=== PATIENT | male | born 1995 | race Caucasian/White ===

== ENCOUNTER 2017-04-16 06:02 | Inpatient (IN) ==
[2017-04-16] MEDS ORDERED: PANTOPRAZOLE 40 MG VIAL IV STA (06:30)
[2017-04-16] MEDS ORDERED: HYDROmorphone 2 MG/1 ML VIAL IV STA ×2 (06:30→08:58)
[2017-04-16] MEDS ORDERED: SODIUM CHLORIDE 0.9% 1,000 ML IV STA (06:30)
[2017-04-16] MEDS ORDERED: ONDANSETRON 4 MG/2 ML VIAL IV STA (06:30)
--- NOTE | 2017-04-16 06:33 | Emergency Department Note ---
Rolf Guzman Rolonda, am scribing for, and in the presence of, Adryan Lozada MD 06: 30. Kierra Guzman James D, MD, personally performed the services described in this documentation, ascribed by Chauncey Bansal in my presence, and it is both accurate and complete 631 . Arrival - Arrival Chief Complaint: Abdominal / Flank Pain Stated Complaint: abd pain,SOB ED Nursing Triage Note: C/O Generalized abd pain. Onset 2200 lastnight. Pt reports taking stool softener thinking it could be gas or constipation- had a BM without any relief of the pain. Denies fever/nausea/vomiting/diarrhea/ urinary s/s Mode of Arrival: Ambulatory Limitations: No Limitations Source: Patient, Old Records Reviewed, RN Notes Reviewed - History of Present Illness HPI Narrative: Pt is a 22 y/o male who presents to the ED with c/o abdominal pain with an onset of hours ago. Pt states that he took stool softener and Gas-X. He states that he has recently had 6-7 beers this weekend. He denies N/V, chill, and fever. No other complaint/pain in ED. Onset (ago): hour(s) Consistency: constant Severity: mild, moderate Severity scale (1-10): 4 Allergies/Adverse Reactions: Allergies Allergy/AdvReac Type Severity Reaction Status Date / Time No Known Allergies Allergy Verified 04/16/17 06:15 Home Medications: Home Medications Medication Instructions Recorded Confirmed Type No Known Home Medications [No 04/16/17 04/16/17 History Known Home Medications] Review of System - Review of System 12 point system: reviewed and no additional remarkable complaints except as stated - Review of System Constitutional: Absent: chills, fever Eyes: Absent: discharge Head/Ears/Nose/Throat: Absent: earache Respiratory: Absent: cough Cardiovascular: Absent: chest pain Gastrointestinal: Present: abdominal pain. Absent: nausea, vomiting Genitourinary male: Absent: urgency Musculoskeletal: Absent: arm pain Skin: Absent: rash Neurological: Absent: headache Psychiatric: Absent: anxiety Endocrine: Absent: cold intolerance Hematological/Lymphatic: Absent: easy bleeding Allergic/Immunologic: Absent: facial swelling Medical,Surgical,& Family Hx - Social History Smoking Status: Never smoker Frequency of Alcohol Use: Occasionally Type of Drug Use: None Exam Vital Signs: Vital Signs Temperature 98.5 F 04/16/17 06:15 Pulse Rate 84 04/16/17 07:38 Respiratory Rate 16 04/16/17 07:38 Blood Pressure 148/85 04/16/17 07:38 O2 Sat by Pulse Oximetry 98 04/16/17 07:38 GENERAL: This is a well-nourished well-developed white male in no apparent distress. VITAL SIGNS: Reviewed HEENT: Head is atraumatic and normocephalic. Pupils are equal round react to light. Extraocular movements are intact. Oropharynx is benign with moist mucous membranes. NECK: Neck is soft and supple without tenderness. There are no masses. There is no lymphadenopathy. LUNGS: Lungs are clear to auscultation. Chest rises symmetrically. There is no chest wall tenderness. CV: Heart is regular rate and rhythm without murmurs rubs or gallops. ABDOMEN: Abdomen is soft, tender to palpation in the epigastrium and right upper quadrant with guarding. There are no abdominal abnormal masses palpated. There is no organomegaly. Bowel sounds are hypoactive. SKIN: Skin is warm and dry. No rash. EXTREMITIES: Patient has full range of motion without tenderness. There is no pedal edema. NEUROLOGIC: Awake alert and oriented 4. Cranial nerves II through XII are grossly intact. Motor is 5 over 5 in all extremities bilaterally. Course - Consultations Consultation #1: Discussed with hospitalist. Time: 09:04 Results - Labs CBC & BMP: 04/16/17 06:42 04/16/17 06:42 Lab Results: I have reviewed the patients labs - EKG EKG results: interpreted by ERMD - Diagnostic Findings Procedure: Abdominal x-ray: image reviewed by me (No free air, nonspecific gas pattern, gas in the rectum.), Chest x-ray: image reviewed by me (No infiltrates , no pleural effusions.), CT Abdomen and Pelvis: report reviewed by me (Colitis since scattered air-fluid levels.) Disposition Clinical Impression: Epigastric pain, Right upper quadrant abdominal pain, Colitis Case discussed with: patient Disposition: Still a Patient Condition: Stable Time of Disposition: 09:04
[2017-04-16] MEDS ORDERED: PANTOPRAZOLE 40 MG VIAL IV ONE (06:38)
[2017-04-16] MEDS ORDERED: ONDANSETRON 4 MG/2 ML VIAL ONE ×2 (06:38→09:18)
[2017-04-16] MEDS ORDERED: HYDROmorphone 2 MG/1 ML VIAL ONE ×2 (06:39→09:19)
[2017-04-16 07:01] LABS: Basophils # 0.1 10*3/uL (0.0-0.2); Basophils % 0.6 % (0.0-0.8); Eosinophils # 0.4 10*3/uL (0.0-0.87); Eosinophils % 3.6 % (0.00-10.9); Hematocrit 43.7 VOL% (42.0-52.0); Hemoglobin 15.6 GM/DL (14.0-18.0); Immature Granulocytes % 0.3 %; Immature Granulocytes Absolute 0.03 #; Lymphocytes # 1.9 10*3/uL (1.4-4.0); Lymphocytes % 18.5 % (21.2-54.2); Mean Corpuscular HGB Conc 35.7 GM/DL (32-36); Mean Corpuscular Hemoglobin 30 PG (27-34); Mean Corpuscular Volume 84.5 FL (87-102); Mean Platelet Volume 11.1 FL (9.6-12.0); Monocytes # 0.9 10*3/uL (0.11-0.8); Monocytes % 8.7 % (1.7-12.7); Neutrophils # 7.2 10*3/uL (1.4-7.4); Neutrophils % 68.3 % (38.7-73.9); Platelet Count 212 T/CUMM (130-400); Red Blood Count 5.17 MC/CUMM (3.8-5.5); Red Cell Distribution Width 12.2 % (9.3-17.3); White Blood Count 10.5 T/CUMM (4-12)
[2017-04-16 07:13] LABS: Apearance,Urine CLEAR (Clear); Bacteria,Urine Occasional /HPF (Few); Bilirubin,Urine Negative (Negative); Blood, Urine Negative (Negative); Glucose,Urine (UA) Negative (Negative); Ketones,Urine 5 mg/dL (Negative); Mucus,Urine Occasional /LPF (Occasional); Nitrite,Urine Negative (Negative); Protein,Urine Negative; RBC,Urine 1 /HPF (0-4); Squamous Epithelial Cell,Urine Occasional /HPF (0-10); Urine Color Yellow (Yellow); Urine Specific Gravity 1.031 (1.001-1.035); Urine Urobilinogen < 2.0 EU/DL (0.2-1.0); WBC,Urine 3 /HPF (0-6)
[2017-04-16 07:30] LABS: Albumin 4.8 G/DL (3.4-5.0); Bilirubin,Total 0.6 MG/DL (0.2-1.0); Calcium 9.9 MG/DL (8.5-10.1); Osmolality,Calculated 276.8 MOS/KG (273-304); Potassium 3.6 MMOL/L (3.5-5.1); Total Protein 8.2 G/DL (6.4-8.3)
[2017-04-16 07:32] LABS: Lactic Acid 3.2 MMOL/L (0.4-2.0)
[2017-04-16] MEDS ORDERED: FAMOTIDINE 20 MG/2 ML VIAL IV STA (07:33)
[2017-04-16] MEDS ORDERED: ALUM/MAG/SIMETH/LIDO VISC 1:1 30 ML BOTTLE PO STA (07:33)
[2017-04-16] MEDS ORDERED: ALUM/MAG/SIMETH/LIDO VISC 1:1 30 ML BOTTLE PO ONE (07:35)
[2017-04-16] MEDS ORDERED: FAMOTIDINE 20 MG/2 ML VIAL IV ONE (07:36)
--- NOTE | 2017-04-16 07:52 | XRay Report ---
XR abdomen 2V Indication: Generalized abdominal pain Comparison: None Technique: Frontal views of the abdomen in the supine and upright position. Findings: Nonspecific bowel gas pattern. Scattered fluid levels within the small bowel and colon suspicious for gastroenteritis/colitis/diarrhea causing illness. Visualized osseous and surrounding soft tissue structures demonstrate no acute abnormality. Lung bases clear. IMPRESSION: As above. PROCEDURE INTERPRETED AT [facility] DEPARTMENT OF RADIOLOGY Final Report Signed by: Dr Pawan Mendosa
--- NOTE | 2017-04-16 08:03 | Ultrasound Report ---
US gallbladder Indication: Epigastric and right upper quadrant abdominal pain. Comparison: None. Technique: Multiple longitudinal and transverse real-time sonographic images of the right upper quadrant of the abdomen are obtained. Findings: The liver measures 16.2 cm and demonstrates normal echogenicity without focal abnormality on submitted images. The gallbladder is normal in size and demonstrates no wall thickening, abnormal intraluminal echoes, or pericholecystic fluid. The sonographic Main's sign is negative. The common duct measures 0.4 cm in diameter and there is no evidence of significant intrahepatic ductal dilation. Right kidney measures 9.6 cm. Pancreas obscured by bowel gas. IMPRESSION: Unremarkable right upper quadrant ultrasound. PROCEDURE INTERPRETED AT [facility] DEPARTMENT OF RADIOLOGY Final Report Signed by: Dr Pawan Mendosa
--- NOTE | 2017-04-16 08:20 | CT Report ---
CT abdomen pelvis w con Indication: Epigastric pain Comparison: None Technique: Multiple axial tomographic images of the abdomen and pelvis were obtained after the administration of 100 cc Omnipaque 350 intravenous contrast. Findings: Lung bases clear. No worrisome focal hepatic abnormality. The gallbladder is grossly unremarkable. The pancreas is grossly unremarkable. The spleen is grossly unremarkable. The bilateral adrenal glands are grossly unremarkable. The urinary bladder is incompletely distended. There is no evidence of gastrointestinal obstruction or acute appendicitis. Scattered fluid throughout the small bowel and colon suspicious for gastroenteritis/colitis/diarrhea causing illness. Visualized vasculature grossly unremarkable. IMPRESSION: Scattered fluid throughout the small bowel and colon suspicious for gastroenteritis/colitis/diarrhea causing illness. The CT exam was performed using one or more of the following dose reduction techniques: Automated exposure control, adjustment of the mA and/or kV according to patient size, or use of iterative reconstruction technique. PROCEDURE INTERPRETED AT [facility] DEPARTMENT OF RADIOLOGY Final Report Signed by: Dr Pawan Mendosa
--- NOTE | 2017-04-16 08:33 | XRay Report ---
XR chest 1V portable Indication: Generalized abdominal pain Comparison: None Technique: Single frontal view of the chest. Findings: Heart size within normal limits. No focal consolidation, pleural effusion, or pneumothorax. Visualized osseous and surrounding soft tissue structures demonstrate no acute abnormality. IMPRESSION: No acute cardiopulmonary process demonstrated. PROCEDURE INTERPRETED AT [facility] DEPARTMENT OF RADIOLOGY Final Report Signed by: Dr Pawan Mendosa
[2017-04-16] MEDS ORDERED: ACETAMINOPHEN 325 MG TABLET PO PRN (09:30)
--- NOTE | 2017-04-16 09:37 | Hospitalist History & Physical ---
<Annika Castillo - Last Filed: 04/16/17 09:48> Assessment and Plan - Time spent with patient Time spent with patient: Greater than 30 minutes (1) Colitis Status: Acute Assessment and plan: Admit 04/16/17 IV fluids clear liquid diet PRN anti-emetics PRN pain management protonix daily consult GI Will discuss with Dr Ken for further recommendations with care. Current Visit: Yes (2) Right upper quadrant abdominal pain Status: Acute Current Visit: Yes History of Present Illness Chief complaint: abdominal pain History of present illness: Mr. Washburn is a 22 year old white male without significant PMHx presented to the ED with c/o abdominal pain and nausea that started at 22:00 p.m. He denies vomiting. He reports taking a stool softener at about 10:30 because he thought constipation was causing his pain and he started having diarrhea 45 to hour after taking it. He reported the pain to be center of abdomen that does not radiate to any other location. He reports pain/soreness in his scrotum, but denies difficulty urinating, swelling, urinary frequency or flank pain. He denies fever or chills. He denies smoking or drug use. He reported 6-7 beers over the weekend. IN ED: Vital signs stable and afebrile. LABS: WBC normal. H&H stable. BUN 19. Creatinine 1.30, Glucose 139, Lactic Acid 3.2. Urinalysis Leukocytes trace , WBC 3, negative nitrates, ketones 5. Abd xray: scattered fluid in small bowel & colon suspicious for gastroenteritis/colitis/diarrhea causing illness. CXR: nothing acute. Gallbladder US: gallbladder normal; pancreas obscured by bowel gas. Abd CT: scattered fluid throughout small bowel and colon suspicious for gastroenteritis/colitis/diarrhea causing illness. After discussion with Dr Lozada in the ED and Dr Ken with Hospital Medicine, it was agreed to admit patient for further evaluation. No home medications to be reviewed or reconciled. Home Medications Medication Instructions Recorded Confirmed Type No Known Home Medications [No 04/16/17 04/16/17 History Known Home Medications] Allergies Allergy/AdvReac Type Severity Reaction Status Date / Time No Known Allergies Allergy Verified 04/16/17 06:15 Medical,Surgical,& Family Hx - Social History Smoking Status: Never smoker Frequency of Alcohol Use: Occasionally Type of Drug Use: None Marital Status: Single Functional capacity: independent ambulation 12 point system: reviewed and no additional remarkable complaints except as stated - Constitutional Constitutional: Absent: chills, fever(s) - Gastrointestinal Gastrointestinal: Present: abdominal pain - Genitourinary Genitourinary: Present: testicular pain. Absent: difficulty urinating, dysuria , flank pain, urinary frequency, urinary incontinence Exam - Constitutional Vitals: Period Temp Pulse Resp BP Sys/Fox Pulse Ox Last 24 Hr 98.5 F-98.5 F 80-84 16-20 148-149/80-85 98-100 General appearance: normal weight, no acute distress - Head Head exam: Present: normal inspection - Eye Eye exam: Present: EOMI Pupils: Present: INGRID - Respiratory Respiratory exam: Present: clear to auscultation bilaterally. Absent: rales, rhonchi, stridor, wheezes - Cardiovascular Cardiovascular exam: Present: regular rate and rhythm - GI/Abdominal GI/Abdominal exam: Present: normal bowel sounds, tenderness, soft. Absent: firm , guarding, rebound - Extremities Exam Extremities exam: Present: normal inspection, full ROM. Absent: edema - Neurological Exam Neurological exam: Present: alert, oriented X3, CN II-XII intact - Psychiatric Psychiatric exam: Present: normal affect, normal mood. Absent: agitated, anxious - Skin Skin exam: Present: normal color, warm, dry Results - Labs CBC & BMP: 04/16/17 06:42 04/16/17 06:42 Lab Results: I have reviewed the past 24 hour labs - Diagnostic Findings Procedure: Abdominal x-ray: report reviewed by me (scattered fluid levels within the small bowel and colon suspicious for gastroenteritis/colitis/diarrhea ), Chest x-ray: report reviewed by me (nothing acute), CT Abdomen and Pelvis: report reviewed by me (scattered fluid throughout the small bowel and colon suspicious for gastroenteritis/colitis/diarrhea causing illness) <Alex Ken - Last Filed: 04/16/17 16:27> History of Present Illness History of present illness: Patient seen and examined independently of PADDING GLUER Castillo, agree with history, assessment and plan as documented. This afternoon patient reports that abdominal pain is much better after receiving pain medications. Afebrile, no leukocytosis. GI has been consulted. Possible discharge soon if continues to improve. Exam - Constitutional Vitals: Period Temp Pulse Resp BP Sys/Fox Pulse Ox Last 24 Hr 96.9 F-98.5 F 55-89 16-20 118-153/65-105 96-100 Results - Labs CBC & BMP: 04/16/17 06:42 04/16/17 06:42
[2017-04-16] MEDS: ONDANSETRON 4 MG/2 ML VIAL IV PRN ×2 (14:31→21:48)
[2017-04-16] MEDS: SODIUM CHLORIDE 0.9% 1,000 ML IV SCH ×2 (14:32→21:51)
[2017-04-16] MEDS: MORPHINE 2 MG/1 ML SYRINGE IV PRN ×2 (14:32→23:57)
--- NOTE | 2017-04-16 14:37 | Gastrointestinal Consult Note ---
Assessment and Plan (1) Abdominal pain Status: Acute Assessment and plan: 04/16-sudden onset of abdominal pain with nausea without vomiting. No fever, without leukocytosis. CT of abdomen findings noted as below as well as ultrasound being negative. Stool cultures are pending. Start Protonix 40 mg daily. No prior history of endoscopy. Plan an addendum to followed by Dr. Delgado. Current Visit: Yes History of Present Illness Chief complaint: Abdominal pain History of present illness: Mr. Washburn is a 22 year old male who was admitted to the hospital this morning after sudden onset of abdominal pain last night. Patient is accompanied by his mother who is at bedside however he is able to provide historical information. Patient is a student at the [employer]. He states that last night he returned home from basketball practice and was feeling like his usual state of health however about 10 PM he had a sudden onset of severe mid abdominal pain that was sharp and stabbing sensation. He states the pain felt like gas pressure at first so he took some stool softeners feel like he needed to have a bowel movement. He states not long after this he did have 2 fairly loose stools however his symptoms continued. He also reports some nausea however states he was unable to vomit. He denies any melena hematochezia with his bowel movements. Patient states the pain continued throughout the night until early this morning and did not decrease in intensity or severity. He also reports having some scrotal tenderness and feeling of pressure. He denies any associated problems with urinating, frequency, urgency hematuria or other related symptoms. He states that he does not smoke however he does drink 1-2 beers about 3 times a week. He did attend a birthday alliance party on Sunday which she drank approximately 6-7 beers. He denies any NSAID use other than occasional ibuprofen. He denies any recent sports related injury and states that he is usually in good state of health. There is no reported family history of GI problems in the past. Patient denies any weight loss and states he has been slowly gaining weight recently. He denies any fever or chills but states that he does have occasional night sweats but relates this to the amount of covers he uses at night. He denies being exposed to others with a known viral illness. On admission, he had a CT of the abdomen with contrast which showed scattered fluid in the small bowel and colon suspicious for gastroenteritis/colitis/diarrhea illness. He denies taking any recent medications including antibiotics. Ultrasound is without any abnormal results noted. He is without leukocytosis. UA is negative. He has a mildly elevated lactic acid at 3.2. Creatinine is 1.3. Remainder of lab work is unremarkable. Home Medications Medication Instructions Recorded Confirmed Type No Known Home Medications [No 04/16/17 04/16/17 History Known Home Medications] Allergies Allergy/AdvReac Type Severity Reaction Status Date / Time No Known Allergies Allergy Verified 04/16/17 06:15 Medical,Surgical,& Family Hx - Medical History Musculoskeletal: No history of: Amputation - Surgical History Neurologic Surgeries: Patient denies: Neurologic Surgery - Family History Family History: Reports;: Family Diabetes, Family Hypertension Denies;: Family Anesthesia Reaction, Family Heart Disease, Family Psychiatric Problems - Social History Smoking Status: Never smoker Frequency of Alcohol Use: Occasionally Type of Drug Use: None 12 point system: reviewed and no additional remarkable complaints except as stated - Constitutional Constitutional: Present: as per HPI - EENT Eyes: Present: as per HPI Ears: Present: as per HPI Nose, mouth and throat: Present: as per HPI - Cardiovascular Cardiovascular: Present: as per HPI - Respiratory Respiratory: Present: as per HPI - Gastrointestinal Gastrointestinal: Present: as per HPI, abdominal pain, bloating, nausea - Genitourinary Genitourinary: Present: as per HPI - Musculoskeletal Musculoskeletal: Present: as per HPI - Neurological Neurological: Present: as per HPI - Psychiatric Psychiatric: Present: as per HPI - Endocrine Endocrine: Present: as per HPI - Hematologic/Lymphatic Hematologic/Lymphatic: Present: as per HPI Exam - Constitutional Vitals: Period Temp Pulse Resp BP Sys/Fox Pulse Ox Last 24 Hr 96.9 F-98.5 F 55-89 16-20 118-153/65-105 96-100 General appearance: normal weight, no acute distress - Head Head exam: Present: normal inspection, normocephalic - Eye Eye exam: Present: other (Lids and conjunctivae are unremarkable). Absent: scleral icterus - ENT ENT exam: Present: normal exam, normal oropharynx - Neck Neck exam: Present: normal inspection - Respiratory Respiratory exam: Present: clear to auscultation bilaterally. Absent: rales, rhonchi, wheezes - Cardiovascular Cardiovascular exam: Present: regular rate and rhythm. Absent: diastolic murmur , JVD, systolic murmur - GI/Abdominal GI/Abdominal exam: Present: normal bowel sounds, tenderness (Mid abdomen), soft. Absent: ascites, distended, mass, organomegaly - Extremities Exam Extremities exam: Present: normal inspection, full ROM - Back Exam Back exam: Present: normal inspection - Neurological Exam Neurological exam: Present: alert, oriented X3 - Psychiatric Psychiatric exam: Present: normal affect, normal mood - Skin Skin exam: Present: normal color, warm, dry Results - Labs CBC & BMP: 04/16/17 06:42 04/16/17 06:42 Lab Results: I have reviewed the past 24 hour labs - Diagnostic Findings Procedure: CT Abdomen and Pelvis: report reviewed by me
[2017-04-17] MEDS: MORPHINE 2 MG/1 ML SYRINGE IV PRN ×3 (05:40→23:14)
[2017-04-17] MEDS: SODIUM CHLORIDE 0.9% 1,000 ML IV SCH ×3 (05:42→22:17)
[2017-04-17 07:36] LABS: Basophils # 0.1 10*3/uL (0.0-0.2); Basophils % 0.9 % (0.0-0.8); Eosinophils # 0.6 10*3/uL (0.0-0.87); Eosinophils % 11.4 % (0.00-10.9); Hematocrit 40.1 VOL% (42.0-52.0); Hemoglobin 13.9 GM/DL (14.0-18.0); Immature Granulocytes % 0.2 %; Immature Granulocytes Absolute 0.01 #; Lymphocytes # 1.8 10*3/uL (1.4-4.0); Lymphocytes % 32.8 % (21.2-54.2); Mean Corpuscular HGB Conc 34.7 GM/DL (32-36); Mean Corpuscular Hemoglobin 30 PG (27-34); Mean Corpuscular Volume 87.2 FL (87-102); Mean Platelet Volume 11.4 FL (9.6-12.0); Monocytes # 0.6 10*3/uL (0.11-0.8); Monocytes % 11.2 % (1.7-12.7); Neutrophils # 2.3 10*3/uL (1.4-7.4); Neutrophils % 43.5 % (38.7-73.9); Platelet Count 185 T/CUMM (130-400); Red Cell Distribution Width 12.6 % (9.3-17.3); White Blood Count 5.3 T/CUMM (4-12)
[2017-04-17 08:07] LABS: Calcium 8.9 MG/DL (8.5-10.1); Magnesium 2.2 MG/DL (1.8-2.4); Osmolality,Calculated 278.3 MOS/KG (273-304); Potassium 4.2 MMOL/L (3.5-5.1)
[2017-04-17 08:21] LABS: Eosinophils 14 % (0-10); Giant Platelets Few; Hypochromasia 1+; Lymphocytes 34 % (20-55); Platelet Estimate Normal; Segmented Neutrophils 40 % (50-85); Total Cells Counted 100
[2017-04-17] MEDS: PANTOPRAZOLE 40 MG TABLET PO SCH (08:39)
--- NOTE | 2017-04-17 08:42 | Gastrointestinal Progress Note ---
<SilvioKatie Nandini - Last Filed: 04/17/17 08:40> Assessment and Plan (1) Abdominal pain Status: Acute Assessment and plan: 04/17-abdominal pain improved without nausea or vomiting. Afebrile. Tolerating clear liquid diet with increased appetite. Advance to full liquids and continue to monitor. Plan an addendum to followed by Dr. Delgado. 04/16-sudden onset of abdominal pain with nausea without vomiting. No fever, without leukocytosis. CT of abdomen findings noted as below as well as ultrasound being negative. Stool cultures are pending. Start Protonix 40 mg daily. No prior history of endoscopy. Plan an addendum to followed by Dr. Delgado. Current Visit: Yes Gastroenterology - PN: Subj Interval history: CC: Abdominal pain Patient is seen awake and alert with mother at bedside. States he is feeling better this morning. He did require pain medication yesterday afternoon and once again last night but states that his pain is much more improved at this time. He denies any nausea or vomiting. He does states the pain started a little while after he had a clear liquid diet as well as 2 or 3 extra cups of Jell-O. He has not had a bowel movement today. He is afebrile without leukocytosis. His lab work is unremarkable this morning. Abdomen is soft, nontender to palpation. ROS: Denies shortness of breath or chest pain Exam (Progress Note) - Constitutional Vitals: Period Temp Pulse Resp BP Sys/Fox Pulse Ox Last 24 Hr 96.9 F-98.2 F 45-89 16-20 118-153/65-105 96-100 - Other Additional findings: General appearance: normal weight, no acute distress - Head Head exam: Present: normal inspection, normocephalic - Eye Eye exam: Present: other (Lids and conjunctivae are unremarkable). Absent: scleral icterus - ENT ENT exam: Present: normal exam, normal oropharynx - Neck Neck exam: Present: normal inspection - Respiratory Respiratory exam: Present: clear to auscultation bilaterally. Absent: rales, rhonchi, wheezes - Cardiovascular Cardiovascular exam: Present: regular rate and rhythm. Absent: diastolic murmur , JVD, systolic murmur - GI/Abdominal GI/Abdominal exam: Present: normal bowel sounds, , soft. Absent: ascites, distended, mass, organomegaly - Extremities Exam Extremities exam: Present: normal inspection, full ROM - Back Exam Back exam: Present: normal inspection - Neurological Exam Neurological exam: Present: alert, oriented X3 - Psychiatric Psychiatric exam: Present: normal affect, normal mood - Skin Skin exam: Present: normal color, warm, dry Results - Labs CBC & BMP: 04/17/17 06:32 04/17/17 06:32 Lab Results: I have reviewed the past 24 hour labs <Abilio Delgado - Last Filed: 04/17/17 13:48> Exam (Progress Note) - Constitutional Vitals: Period Temp Pulse Resp BP Sys/Fox Pulse Ox Last 24 Hr 96.9 F-98.2 F 45-70 16-20 119-146/65-89 96-100 Results - Labs CBC & BMP: 04/17/17 06:32 04/17/17 06:32
--- NOTE | 2017-04-17 10:37 | Hospitalist Progress Note ---
Assessment and Plan (1) Gastroenteritis Status: Acute Assessment and plan: He appears to be improving at the present time he is not experiencing nausea, vomiting, or diarrhea. His abdominal pain is decreased significantly and he has begun eating. Current Visit: Yes (2) Abdominal pain Status: Acute Assessment and plan: See above. Current Visit: Yes Hospitalist: Subjective Interval history: Patient was hospitalized here yesterday with acute gastroenteritis. He has been seen in consultation by gastroenterology. He is tolerating a clear liquid diet and wishes to advance to a full liquid diet. Exam - Constitutional Vitals: Period Temp Pulse Resp BP Sys/Fox Pulse Ox Last 24 Hr 96.9 F-98.2 F 45-74 16-20 119-149/65-99 96-100 General appearance: no acute distress - Head Head exam: Present: normal inspection - Neck Neck exam: Present: normal inspection - Respiratory Respiratory exam: Present: clear to auscultation bilaterally - Cardiovascular Cardiovascular exam: Present: regular rate and rhythm - GI/Abdominal GI/Abdominal exam: Present: normal bowel sounds, soft, other (Nontender with no palpable masses or hepatosplenomegaly.) - Extremities Exam Extremities exam: Present: normal inspection - Skin Skin exam: Present: normal color, warm, intact Results - Labs CBC & BMP: 04/17/17 06:32 04/17/17 06:32
--- NOTE | 2017-04-17 15:56 | Nuclear Medicine Report ---
History is recurrent upper abdominal pain and nausea 5.0 mCi technetium 99m Choletec utilized There is prompt uptake of radiotracer in the liver Gallbladder activity seen at 30 minutes Small bowel activity seen at 10 minutes Following administration of 8 ounces of ensure p.o., estimated gallbladder ejection fraction is 43% (normal is 40% or greater) Impression: Unremarkable gallbladder scan with borderline normal gallbladder ejection fraction PROCEDURE INTERPRETED AT [facility] DEPARTMENT OF RADIOLOGY Final Report Signed by: Dr. Marlin Harris
[2017-04-17] MEDS ORDERED: KETOROLAC 30 MG/1 ML VIAL IV ONE (21:00)
--- NOTE | 2017-04-17 21:30 | General Surgery Consult Note ---
Assessment and Plan (1) Epigastric pain Status: Acute Assessment and plan: Impression: Abdominal pain of unknown etiology Plan: Previous physician notes, lab work and radiograph reports and images have all been reviewed. Because of his abdominal pain is unknown. He had some mild scattered air-fluid levels with no significant bowel distention. Pancreas appears normal. There is no free fluid or free air. Lactic acid level was elevated upon arrival but this morning was normal. I see no evidence of bowel compromise or ischemia on his studies. We will recheck his lab work. Previous CT scan was without oral contrast. We will plan to check a CT scan with and without IV contrast and with oral contrast in the morning. He does not have peritoneal signs. His creatinine is normal and I will add Toradol to see if this helps with his pain. 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 The pain has occurred several times and is very severe during attacks. It is followed by i pain-free intervals. He has had no nausea vomiting or fever. He thought this may have been hunger pains initially. He ate and it did not seem to go away. He also tried stool softeners and at one point on Sunday had a liquid bowel movement but nothing since. He denies any medical problems. He did have some alcohol this past weekend. He describes the pain as being predominantly in the epigastric region but states that it is uncomfortable when somebody touches him in the lower abdomen. Pain is also began to radiate to his testicles mostly on the right compared to the left. He has also developed some back pain on the left more than the right. Home Medications Medication Instructions Recorded Confirmed Type No Known Home Medications [No 04/16/17 04/16/17 History Known Home Medications] Allergies Allergy/AdvReac Type Severity Reaction Status Date / Time No Known Allergies Allergy Verified 04/16/17 06:15 Medical,Surgical,& Family Hx - Medical History Medical History: noncontributory Musculoskeletal: No history of: Amputation - Surgical History Surgical History: noncontributory Neurologic Surgeries: Patient denies: Neurologic Surgery - Family History Family History: noncontributory Family History: Reports;: Family Diabetes, Family Hypertension Denies;: Family Anesthesia Reaction, Family Heart Disease, Family Psychiatric Problems - Social History Smoking Status: Never smoker Frequency of Alcohol Use: Occasionally Type of Drug Use: None 12 point system: reviewed and no additional remarkable complaints except as stated Exam - Constitutional Vitals: Period Temp Pulse Resp BP Sys/Fox Pulse Ox Last 24 Hr 96.9 F-98.0 F 45-70 18-20 119-140/65-86 96-99 General appearance: no acute distress - Head Head exam: Present: normocephalic - ENT Mouth exam: Present: normal external inspection - Neck Neck exam: Present: normal inspection - Respiratory Respiratory exam: Present: clear to auscultation bilaterally - Cardiovascular Cardiovascular exam: Present: RRR - GI/Abdominal GI/Abdominal exam: Present: soft (Tender to palpation mostly in the epigastric region. He is mildly tender in the bilateral lower quadrants and suprapubic area. There are no peritoneal signs. He is nondistended.) - Extremities Exam Extremities exam: Present: normal inspection - Back Exam Back exam: Present: normal inspection, CVA tenderness (L), other - Neurological Exam Neurological exam: Present: alert, oriented X3 Speech: Present: normal - Skin Skin exam: Present: normal color Results - Labs CBC & BMP: 04/17/17 06:32 04/17/17 06:32 Lab Results: I have reviewed the past 24 hour labs
[2017-04-17 21:37] LABS: Albumin 4.6 G/DL (3.4-5.0); Bilirubin,Direct 0.24 MG/DL (0.0-0.20); Bilirubin,Indirect 0.6 MG/DL (0.0-1.0); Bilirubin,Total 0.8 MG/DL (0.2-1.0); Total Protein 7.8 G/DL (6.4-8.3)
[2017-04-17 21:48] LABS: Lactic Acid 2.2 MMOL/L (0.4-2.0)
[2017-04-17] MEDS: ONDANSETRON 4 MG/2 ML VIAL IV PRN (22:14)
[2017-04-18] MEDS: SODIUM CHLORIDE 0.9% 1,000 ML IV SCH ×4 (01:50→19:24)
[2017-04-18] MEDS: KETOROLAC 15 MG/1 ML VIAL IV SCH ×4 (02:46→20:48)
[2017-04-18] MEDS: MORPHINE 2 MG/1 ML SYRINGE IV PRN (05:28)
[2017-04-18 07:35] LABS: Basophils # 0.1 10*3/uL (0.0-0.2); Basophils % 0.6 % (0.0-0.8); Eosinophils # 0.5 10*3/uL (0.0-0.87); Eosinophils % 6.4 % (0.00-10.9); Hematocrit 42.1 VOL% (42.0-52.0); Hemoglobin 14.9 GM/DL (14.0-18.0); Immature Granulocytes % 0.1 %; Immature Granulocytes Absolute 0.01 #; Lymphocytes # 1.7 10*3/uL (1.4-4.0); Lymphocytes % 22.1 % (21.2-54.2); Mean Corpuscular HGB Conc 35.4 GM/DL (32-36); Mean Corpuscular Hemoglobin 30 PG (27-34); Mean Corpuscular Volume 85.9 FL (87-102); Mean Platelet Volume 11.3 FL (9.6-12.0); Monocytes # 0.9 10*3/uL (0.11-0.8); Monocytes % 11.7 % (1.7-12.7); Neutrophils # 4.6 10*3/uL (1.4-7.4); Neutrophils % 59.1 % (38.7-73.9); Platelet Count 200 T/CUMM (130-400); Red Cell Distribution Width 12.5 % (9.3-17.3); White Blood Count 7.7 T/CUMM (4-12)
--- NOTE | 2017-04-18 08:31 | Gastrointestinal Progress Note ---
Assessment and Plan (1) Abdominal pain Status: Acute Assessment and plan: 04/18-abdominal pain remains the same at present. Afebrile. CT of abdomen is pending for this morning. Plan an addendum to followed by Dr. Delgado. 04/17-abdominal pain improved without nausea or vomiting. Afebrile. Tolerating clear liquid diet with increased appetite. Advance to full liquids and continue to monitor. Plan an addendum to followed by Dr. Delgado. 04/16-sudden onset of abdominal pain with nausea without vomiting. No fever, without leukocytosis. CT of abdomen findings noted as below as well as ultrasound being negative. Stool cultures are pending. Start Protonix 40 mg daily. No prior history of endoscopy. Plan an addendum to followed by Dr. Delgado. Current Visit: Yes Gastroenterology - PN: Subj Interval history: CC: Abdominal pain Patient is seen, with family at bedside. States that he had some continued abdominal pain off and on last night however states after drinking the contrast this morning for the CT scan it did help improve his pain. He has had some mild nausea but no vomiting. No reports of bowel movements. He is afebrile without leukocytosis. He has a CT of abdomen that is pending for this morning. Surgery has consulted with patient and his added Toradol for the pain which patient states he feels like this has helped. He does state that his pain is more located on his left side into his back however his groin pain has improved. Abdomen is soft, tender to palpation. ROS: Denies shortness of breath or chest pain Exam (Progress Note) - Constitutional Vitals: Period Temp Pulse Resp BP Sys/Fox Pulse Ox Last 24 Hr 97.2 F-98.0 F 60-89 18-20 132-150/73-90 96-100 - Other Additional findings: General appearance: normal weight, no acute distress - Head Head exam: Present: normal inspection, normocephalic - Eye Eye exam: Present: other (Lids and conjunctivae are unremarkable). Absent: scleral icterus - ENT ENT exam: Present: normal exam, normal oropharynx - Neck Neck exam: Present: normal inspection - Respiratory Respiratory exam: Present: clear to auscultation bilaterally. Absent: rales, rhonchi, wheezes - Cardiovascular Cardiovascular exam: Present: regular rate and rhythm. Absent: diastolic murmur , JVD, systolic murmur - GI/Abdominal GI/Abdominal exam: Present: normal bowel sounds, , soft, tenderness absent: ascites, distended, mass, organomegaly - Extremities Exam Extremities exam: Present: normal inspection, full ROM - Back Exam Back exam: Present: normal inspection - Neurological Exam Neurological exam: Present: alert, oriented X3 - Psychiatric Psychiatric exam: Present: normal affect, normal mood - Skin Skin exam: Present: normal color, warm, dry Results - Labs CBC & BMP: 04/18/17 06:17 04/17/17 06:32 Lab Results: I have reviewed the past 24 hour labs
[2017-04-18 08:32] LABS: Calcium 9.1 MG/DL (8.5-10.1); Magnesium 2.3 MG/DL (1.8-2.4); Osmolality,Calculated 275.4 MOS/KG (273-304); Potassium 3.9 MMOL/L (3.5-5.1)
--- NOTE | 2017-04-18 08:40 | CT Report ---
CT abdomen wo/w con Indication: Continued severe upper abdominal pain Comparison: CT abdomen pelvis dated April 16, 2017 Technique: Multiple axial tomographic images of the abdomen were obtained before and after the administration of 100 cc Omnipaque 350 intravenous contrast. Findings: Lung bases clear. No worrisome focal hepatic abnormality. The gallbladder is grossly unremarkable. The pancreas is grossly unremarkable. The spleen is grossly unremarkable. The bilateral adrenal glands are grossly unremarkable. The bilateral kidneys are grossly unremarkable. No evidence of gastrointestinal obstruction. Visualized vasculature grossly unremarkable. Visualized osseous and surrounding soft tissue structures demonstrate no acute abnormality. IMPRESSION: No convincing CT evidence of acute intra-abdominal abnormality. The CT exam was performed using one or more of the following dose reduction techniques: Automated exposure control, adjustment of the mA and/or kV according to patient size, or use of iterative reconstruction technique. PROCEDURE INTERPRETED AT [facility] DEPARTMENT OF RADIOLOGY Final Report Signed by: Dr Pawan Mendosa
[2017-04-18] MEDS: PANTOPRAZOLE 40 MG TABLET PO SCH (09:23)
--- NOTE | 2017-04-18 10:19 | Hospitalist Progress Note ---
Assessment and Plan (1) Gastroenteritis Status: Acute Assessment and plan: He continues to complain of abdominal pain. Current Visit: Yes (2) Abdominal pain Status: Acute Assessment and plan: See above. Current Visit: Yes Hospitalist: Subjective Interval history: He continues to complain of severe abdominal pain. He underwent a CT scan of the abdomen this morning demonstrating no abnormalities. He is being followed by both gastroenterology and surgery, neither of which is found any significant cause for his pain. His mother asked if he could undergo an EGD. I told her to discuss this with when he does his rounds later today. In the meantime I will restart him on a clear liquid diet. Exam - Constitutional Vitals: Period Temp Pulse Resp BP Sys/Fox Pulse Ox Last 24 Hr 97.2 F-98.0 F 60-89 18-20 132-150/73-90 96-100 General appearance: no acute distress - Head Head exam: Present: normal inspection - Neck Neck exam: Present: normal inspection - Respiratory Respiratory exam: Present: clear to auscultation bilaterally - Cardiovascular Cardiovascular exam: Present: regular rate and rhythm - GI/Abdominal GI/Abdominal exam: Present: normal bowel sounds, soft, other (Nontender with no palpable mass or hepatosplenomegaly.) - Extremities Exam Extremities exam: Present: normal inspection - Skin Skin exam: Present: normal color, warm, intact Results - Labs CBC & BMP: 04/18/17 06:17 04/18/17 06:17
--- NOTE | 2017-04-18 10:19 | General Surgery Progress Note ---
Assessment and Plan (1) Epigastric pain Status: Acute Assessment and plan: CT scan has been reviewed by Dr. Gonzales and the radiologist; there are no acute intra-abdominal acute process is identified. There are no surgical indications at this time. Would suggest considering evaluation for porphyria. Otherwise we will sign off at this time. Please call with any additional questions, concerns or needs. Thank you. Current Visit: Yes Subjective Patient reports: Present: other (The patient reports feeling somewhat improved after the late evening. He actually feels better after consuming the contrast for the CT scan this morning. He is still having residual abdominal pain primarily epigastric region. Mother is inquiring about an EGD. No vomiting.) Exam - Constitutional Vitals: Period Temp Pulse Resp BP Sys/Fox Pulse Ox Last 24 Hr 97.2 F-98.0 F 60-89 18-20 132-150/73-90 96-100 - GI/Abdominal GI/Abdominal exam: Present: normal bowel sounds, tenderness (Mild epigastric tenderness), soft. Absent: distended, guarding, rebound - Neurological Exam Neurological exam: Present: alert, oriented X3 Speech: Present: normal - Skin Skin exam: Present: normal color Results - Labs CBC & BMP: 04/18/17 06:17 04/18/17 06:17 - Diagnostic Findings Procedure: CT Abdomen and Pelvis: image reviewed by me, report reviewed by me ( No intra-abdominal process identified)
[2017-04-18 14:59] LABS: Apearance,Urine CLEAR (Clear); Bilirubin,Urine Negative (Negative); Blood, Urine Negative (Negative); Glucose,Urine (UA) Negative (Negative); Ketones,Urine Negative (Negative); Mucus,Urine Occasional /LPF (Occasional); Nitrite,Urine Negative (Negative); Protein,Urine Negative; Urine Color Straw (Yellow); Urine Specific Gravity 1.016 (1.001-1.035); Urine Urobilinogen < 2.0 EU/DL (0.2-1.0); WBC,Urine <1 /HPF (0-6)
[2017-04-18] MEDS: HYOSCYAMINE 0.125 MG TABLET PO SCH ×2 (16:53→20:47)
--- NOTE | 2017-04-18 18:37 | Event Note ---
Patient seen after dinner this evening. He has done well this afternoon he says without any significant discomfort. Abdominal exam is benign. Levsin has been started before meals and at bedtime. Repeat urinalysis was clear. I am going to treat him empirically for irritable bowel syndrome for now. Plan EGD tomorrow if he has recurrent symptoms.
[2017-04-19] MEDS: KETOROLAC 15 MG/1 ML VIAL IV SCH ×3 (02:13→16:36)
[2017-04-19] MEDS: SODIUM CHLORIDE 0.9% 1,000 ML IV SCH ×2 (03:25→13:30)
--- NOTE | 2017-04-19 08:56 | Hospitalist Progress Note ---
Assessment and Plan (1) Abdominal pain Status: Acute Assessment and plan: Patient experienced multiple episodes of abdominal pain on last night. He reported one bowel movement on last night. He was able to tolerate his diet however shortly after he ate his abdominal pain returned. We will continue hydration, pain management, and bowel rest. Gastroenterology is following. We will await for further recommendations. Current Visit: Yes Hospitalist: Subjective Interval history: Patient seen and examined; chart reviewed. Patient verbalized multiple complaints of abdominal pain throughout the night. We agree with GIs plan for EGD. We will await GI evaluation for further recommendations. Exam - Constitutional Vitals: Period Temp Pulse Resp BP Sys/Fox Pulse Ox Last 24 Hr 97.2 F-98.2 F 47-86 16-18 127-150/72-85 92-100 General appearance: normal weight, mild distress - Head Head exam: Present: normal inspection, normocephalic, atraumatic - Eye Eye exam: Present: EOMI. Absent: conjunctival injection Pupils: Present: INGRID, normal accommodation - ENT ENT exam: Present: normal exam, normal external ear exam, normal oropharynx - Neck Neck exam: Present: normal inspection. Absent: lymphadenopathy, meningismus, tenderness, thyromegaly - Respiratory Respiratory exam: Present: clear to auscultation bilaterally. Absent: rales, rhonchi, stridor, wheezes - Cardiovascular Cardiovascular exam: Present: regular rate and rhythm. Absent: carotid bruit, diastolic murmur, gallop, JVD, rubs, systolic murmur - GI/Abdominal GI/Abdominal exam: Present: normal bowel sounds, soft. Absent: tenderness - Extremities Exam Extremities exam: Present: normal inspection, normal capillary refill, full ROM. Absent: edema - Back Exam Back exam: Present: normal inspection - Neurological Exam Neurological exam: Present: alert, oriented X3, CN II-XII intact - Psychiatric Psychiatric exam: Present: normal affect, normal mood - Skin Skin exam: Present: normal color, warm, dry Results - Labs CBC & BMP: 04/18/17 06:17 04/18/17 06:17 Lab Results: I have reviewed the past 24 hour labs
[2017-04-19] MEDS ORDERED: PROPOFOL 200 MG/20 ML VIAL IV ONE (12:00)
[2017-04-19] MEDS ORDERED: LIDOCAINE 2% 5 ML VIAL ONE (12:00)
--- NOTE | 2017-04-19 12:12 | History and Physical Update ---
History and Physical Update - History and Physical H&P was reviewed, the patient examined and there: are no changes in the patients condition since last H&P was completed. - Physical Exam Mental Status: alert and oriented Heart: regular rate and rhythm Lung: clear to auscultation Abdomen: within normal limits Vitals: within normal limits
--- NOTE | 2017-04-19 12:15 | Operative Note ---
Date of procedure: 04/19/17 Pre-op diagnosis: Upper abdominal pain Procedure: Procedure: Esophagogastroduodenoscopy Brief clinical abstract: 22-year-old male has had recurrent mid upper abdominal pain with negative extensive diagnostic workup. He denies associated nausea or gross GI bleeding. He has been on PPI therapy. Indication for procedure: Recurrent upper abdominal pain Endoscopic findings:[After informed consent was obtained, the patient was placed in the left lateral decubitus position. The gastroscope was inserted in the upper esophagus under direct vision with no resistance encountered. Esophageal mucosa appeared normal; with junction sharply demarcated at the diaphragmatic indentation. The endoscope was advanced in the stomach which was carefully examined including retroflexed view of the cardia and fundus with no abnormality seen. The pyloric channel, duodenal bulb, second and third portion of the duodenum appeared normal. The endoscope was removed and patient appeared to tolerate the procedure well. Impression: Normal EGD Recommendations: Advance diet. Continue evaluation of abdominal pain. Could discharge and follow as outpatient if stable today. Anesthesia: GETA (tiva) Surgeon / Physician: Abilio Delgado Estimated blood loss: none Specimens: none sent Condition: stable Disposition: post procedure unit Results - Labs CBC & BMP: 04/18/17 06:17 04/18/17 06:17 Discharge Plan - Discharge Medications No Action No Known Home Medications [No Known Home Medications] - Follow Up or Referral - Forms/Instructions
--- NOTE | 2017-04-19 12:39 | Anesthesia Post-Op ---
Anesthesia Post OP - Post Ansesthetic Evaluation Patient seen in post op: Yes Resp: within normal limits CV: within normal limits Mental: within normal limits Temp: within normal limits [id number]: within normal limits Nausea and Vomiting: within normal limits Pain: within normal limits
[2017-04-19] MEDS: HYOSCYAMINE 0.125 MG TABLET PO SCH ×2 (13:24→13:29)
[2017-04-19] MEDS: PANTOPRAZOLE 40 MG TABLET PO SCH (13:29)
--- NOTE | 2017-04-19 16:59 | Discharge Summary ---
Hospital Course - Hospital Course Hospital Course: The patient was admitted with abdominal cramping, nausea and vomiting. He was mildly dehydrated and was hydrated. He was seen by GI and underwent EGD this morning which was negative. At this point he states the cramping is improved and he feels about back to normal. His mother says he does have a history of irritable bowel and we will discharge him with a prescription for Levsin to use as needed. He was also recommended to use yogurt such as Activia daily. - Time spent with patient Time with patient DS: Less than 30 minutes Diagnosis - Discharge Diagnosis (1) Epigastric pain Status: Acute (2) Gastroenteritis Status: Acute Specialty Discharge - Follow Up or Referrals Discharge Plan - Discharge Medications New Hyoscyamine Tab [Levsin Tab] 0.125 mg PO TID PRN #30 tablet PRN Reason: Abdominal Pain - Follow Up or Referral - Forms/Instructions Instructions: Acute Abdominal Pain (DC), Epigastric Pain (GEN) Exam - Constitutional Vitals: Period Temp Pulse Resp BP Sys/Fox Pulse Ox Last 24 Hr 97.1 F-98.0 F 47-96 16-18 110-150/61-85 92-100 - GI/Abdominal GI/Abdominal exam: Present: soft. Absent: tenderness Discharge Results Procedures and tests throughout hospitalization: Pending Orders 04/18/17 15:57 Porphyrins, QN, Random, U Routine 04/20/17 04:00 CBC [Comp Blood Count Auto Diff] IN AM CMP [Comprehensive Metabolic Panel] IN AM Magnesium IN AM Phosphorous IN AM DS: Provider Date of admission: 04/16/17 09:07 Primary care physician: . No PCP Attending physician on admission: Alex Ken MD Consults: 04/16/17 09:30 Consult to Physician [CONS] Routine Comment: Consulting Provider: Abilio Delgado When should Consulting Provider be notified: Now Person Notified: KALYN OLIVA Date Notified: 04/16/17 Time Notified: 15:52 04/17/17 20:41 Consult to Physician [CONS] Routine Comment: continued upper abd pain Consulting Provider: Zack Gonzales When should Consulting Provider be notified: Now Person Notified: md salgado Date Notified: 04/18/17 Time Notified: 09:05 Discharging clinician: Shane Escobar MD
[2017-04-19 17:35] VITALS: BP 142/79
[2017-04-23 16:21] LABS: Coproporphyrin, Tetra 40 nmol/L (<=110); Interpretation SEE COMMENTS; Uroporphyrin, Octa 4 nmol/L (<=30)
== END 2017-04-19 17:30 | disposition home or self-care (01) | DRG 392 ==
LOC: N.ED 06:02 → N.EDINP 09:07 → SUATTDRO 09:07 → N.EDINP 13:40 → N.5E 14:18
PROVIDERS: ADMIT Internal Medicine; ATTEND Family Medicine